=== PATIENT | female | born 1985 | race Caucasian/White ===

== ENCOUNTER 2019-04-13 16:32 | Inpatient (IN) ==
--- NOTE | 2019-04-13 16:55 | Obstetrical Progress Note ---
Date of Service April 13, 2019 Assessment & Plan (1) Double footling breech presentation: Patient presents with SROM for copious clear fluid, double footling breech presentation confirmed by palpation and by ultrasound, with 2cm/50% cervix. On exam, the cord was palpable between the feet at the top of the internal cervical os. This too was confirmed by ultrasound, where a 3VC is visible in cross section just above the cervix between the feet. STAT section was called. Patient and FOB agree with plan. Dr. Huntley is on L&D for care of his own patients and has graciously volunteered to assist with the delivery. Dr. Harris was made aware by myself, and is en route (he had been notified of patient impending arrival right after I spoke with her by phone, and was already on his way). Dr. Purdy has also been notified by nursery team and is reportedly en route. Present on Admission?: Yes Subjective Patient arrives to L&D grossly ruptured for clear amniotic fluid. She has ongoing leakage, no VB, no contractions and good FM. She notes that in the entire trip from home to here she had two cramps that were not painful. She denies feeling anything other than liquid coming through the vagina. Physical Exam Constitutional: WD/WN, vitals as above Eyes: PERRL, conjunctivae normal, anicteric sclerae ENMT: external ear and nose normal, oropharynx normal Neck: supple Respiratory: normal respiratory effort and able to speak in complete sentences; no respiratory distress Cardiovascular: Rate/Rhythm: regular rate and regular rhythm Gastrointestinal (Abdomen): Gravid / AGA, nontender Musculoskeletal: no cyanosis or clubbing, extremities motor strength 5/5 Skin: no rashes, warm and dry Neurologic: patellar DTR's 2+ bilat, sensation intact Psychiatric: A+Ox3, euthymic affect Genitourinary: Speculum/Bimanual Exam: no vaginal lesions, no vaginal bleeding and uterus nontender OB Exam Abdomen: + breech (double footling confirmed by US. Cord is the first presenting structure.); no regular contractions Manual OB Exam: + cervical dilation 2 cm, + cervical effacement 50%, + station (double footling.) and + amniotic fluid clear and nitrazine positive OB Exam Monitor Tracing: + external FHT monitor used, + external uterine monitor used and + category I PG Care Time/CCT Total # of Minutes Spent Total Time Spent with Patient: Total time spent is greater than 50% in coordination of care (as documented) at patient's floor/unit and/or counseling patient:
[2019-04-13] MEDS ORDERED: LACTATED RINGER'S 1,000 ML IV SCH ×3 (17:00→21:42)
--- NOTE | 2019-04-13 17:12 | Anesthesiology Consultation ---
Date of Service April 13, 2019 Assessment & Plan (1) Encounter for pre-operative examination: Chart Review Chart Review: Acceptable Risk for Surgery and Patient NOT seen in Pre Admission Testing Consults Requested none ASA ASA2 Proposed Anesthesia Anesthesia Type: Spinal (intrathecal narcotics) Risk / Benefits Reviewed With: PT / POA / Parent / Guardian, Accepts Plan and Informed Consent Obtained History Surgery Operation Date: 04/13/19 16:40 Proposed Procedures p Section in LD(Bilateral) - Belen Samaniego MD Height/Weight Height: 5 ft 8 in Weight: 85.729 kg Allergies Allergy/AdvReac Type Severity Reaction Status Date / Time No Known Drug Allergies Allergy Verified 04/10/19 13:51 Medications Home Medications Medication Instructions Recorded Confirmed Last Taken PNV cmb#95-ferrous fumarate-FA 1 tab PO DAILY 11/21/18 04/11/19 03/27/19 [] ferrous sulfate 325 mg PO 3XWK 03/13/19 04/11/19 03/26/19 amoxicillin 500 mg PO TID 04/09/19 04/11/19 04/10/19 calcium carbonate [Tums] 200 mg PO UD PRN 04/10/19 04/11/19 Unknown guaifenesin PO 04/11/19 04/11/19 Unknown NPO Date Last Intake of Fluids: 04/13/19 Time Last Intake of Fluids: 14:00 Date Last Intake of Solids: 04/13/19 Time Last Intake of Solids: 14:00 Past Medical History Medical History Acid reflux WITH , TUMS PRN Breech presentation Eosinophilic granuloma BORN WITH, 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 ISSUES History of antepartum hemorrhage DURING DELIVERY WITH PRIOR History of anxiety History of high blood pressure AROUND THE TIME OF MIGRAINES/NO CURRENT ISSUES WITH History of migraine History of placenta previa THIS AND RESOLVED Leg swelling FEW MONTHS AGO, L LEG SWELLING - ED VISIT FOR - U/S FOR BLOOD CLOT - NEGATIVE RESOLVED Sinus infection Exercise / Class Metabolic Activity II 4-5 Yardwork/Stairs/Walk up hill Past Family History Family History Brother Depression Father Depression Mother Breast cancer FH: malignant neoplasm of thyroid Sister Breast cancer Grandmother (Paternal) Multiple gestation Family/Other Multiple gestation cousin Past Surgical History Surgical History History of laparoscopy S/P wisdom tooth extraction Past Anesthesia History No Hx of Anesthesia Complications and No Family Hx of Anesthesia Complications History of PONV No Hx of PONV and No Hx of Motion Sickness Social History Smoking Status: Never smoker Do You Dip or Chew Tobacco: No Hx Alcohol Use: No Hx Substance Use: No substance use type: does not use Physical Exam Vital Signs Last Vital Signs Temp 37.1 C 04/13/19 16:50 Pulse 81 04/13/19 16:51 Resp 18 04/13/19 16:50 BP 135/69 04/13/19 16:51 ENMT Mouth: no dentition abnormality Thyromental Distance: > or= 3.5 Finger Breadths Mallampati Class: II Neck normal visual inspection Respiratory normal respiratory effort Auscultation: lungs clear to auscultation bilaterally Cardiovascular Rate/Rhythm: regular rate and regular rhythm Psychiatric Orientation: alert
[2019-04-13] MEDS ORDERED: CEFAZOLIN 2000MG 2,000 MG/15 ML SYR IV SCH (17:15)
[2019-04-13 17:16] LABS: Basophils # (auto) 0.02 K/uL (0-0.2); Basophils % (auto) 0.2 %; Eosinophils # (auto) 0.04 K/uL (0-0.5); Eosinophils % (auto) 0.4 %; Hematocrit (blood only) 34.1 % (37-47); Hemoglobin 11.8 g/dL (12.0-16.0); Immature Granulocytes # (auto) 0.05 K/uL (0.00-0.02); Immature Granulocytes % (auto) 0.5 %; Lymphocytes # (auto) 1.41 K/uL (1.2-3.4); Lymphocytes % (auto) 13.9 %; Mean Corpuscular Hemoglobin 33.1 pg (25-34); Mean Corpuscular Hgb Conc 34.6 g/dL (32-36); Mean Corpuscular Volume 95.8 fL (80-100); Mean Platelet Volume 10.1 fL (7.4-10.4); Monocytes # (auto) 0.71 K/uL (0.11-0.59); Neutrophils # (auto) 7.92 K/uL (1.4-6.5); Platelet Count 245 K/uL (130-400); RDW Coefficient of Variation 14.4 % (11.5-14.5); RDW Standard Deviation 50.1 fL (36.4-46.3); Red Blood Count 3.56 M/uL (4.2-5.4); White Blood Count 10.15 K/uL (4.8-10.8)
[2019-04-13] MEDS ORDERED: CITRIC ACID/SODIUM CITRATE 15 ML UDC PO SCH (18:00)
--- NOTE | 2019-04-13 18:24 | Operative Report ---
Post Operative Report Pre & Post Diagnosis Operation Date: 04/13/19 16:40 Pre-Op Diagnosis: Rupture of membranes; Double footling breech; 39 weeks gestation Post-Op Diagnosis: Rupture of membranes; Double footling breech; 39 weeks gestation Procedure Operation Date: 04/13/19 16:40 Actual Procedures p Section in LD(Bilateral) - Belen Samaniego MD Surgeon Belen Samaniego MD Chimney Supervisor Brick Dr. Huntley Estimated Blood Loss 500 Findings Consistent with Post-Op Diagnosis After delivery of infant and removal of placenta, a fibrous band of tissue was found to be firmly attached to the inside of the uterine fundus and stretching down the uterine cavity. This was resected and sent for pathology; it may represent synechia or septum. Specimens Placenta Cord blood Cord gas Fibrous uterine septum Anesthesia Type Spinal Complications none Disposition Accompanied Patient To Recovery: Yes Disposition: L&D Description of Procedure The patient was brought to the operating room and placed on the table in the supine position with a leftward tilt, then prepped and draped in standard sterile fashion. A hard time out was taken prior to proceeding. A pfannensteil incision was created sharply and carried down to the fascia using bovie electrocautery. The fascia was nicked and then extended using davison scissors. The edges of the fascia were grasped with Harleen clamps and elevated, then sharply and bluntly dissected off the underlying rectus. The midline of the rectus was identified and bluntly . The peritoneum was bluntly entered, and this entry was extended using pressure from the surgeon's hands. The bladder retractor was placed and the lower uterine segment was examined and found to be well developed, with the uterus somewhat dextrorotated. A bladder flap was created and the retractor was replaced behind this flap to protect the bladder. A transverse lower uterine incision was then created, with final entry to the uterine cavity made in a blunt manner with the surgeon's finger. Clear amniotic fluid was encountered. The feet were elevated to the incision together, and delivered using mild fundal pressure. The cord was noted to be between the feet and tangled around the ankles. The remainder of the was delivered by extracting to the hips, rotating to sacrum-anterior, delivering the torso to the shoulders, sweeping each arm in physiologic fashion, then delivering the head while maintaining flexion. The cord was doubly clamped and cut, then the infant was taken to the warmer for social and political studies professor care. Cord gas segment was isolated and handed off for collection. The placenta was manually extracted, then the uterus was gently exteriorized from the maternal abdomen. The cavity was cleared of clot and debris using a dry lap sponge. A firm, r oughly 1-cm diameter band of white fibrous avascular tissue was found firmly affixed to the uterine fundus and protruding downward into the cavity, forming a loop that could be grasped by the surgeon. Gentle traction did not show any tendency of this tissue to separate from the fundus. It did not have an appearance consistent with typical placenta. A band of fibrous scar / synechia / septum were all considered possible. This was resected with [place] scissors and sent in formalin for pathology. The remainder of the cavity was clear of any debris, the uterus was very firm, and bleeding was minimal. The angles of the incision were identified with allis clamps, and the hysterotomy was then repaired in running locked fashion using 0-vicryl suture, followed by a second imbricating layer. A small area of bleeding was addressed with a pwpchl-ar-ksdon stitch. The tubes and ovaries were examined and found to be normal bilaterally. The posterior gutter was irrigated and cleared of clot and debris. The uterus was then gently re-internalized to the abdomen. Lateral gutters were cleared of clot and debris using a damp lap sponge, and a final exam of the hysterotomy off pressure revealed good hemostasis. The rectus muscles were allowed to reapproximate naturally. The angle of the fascia was grasped with a Harleen clamp and the fascia was then repaired in running non- locked fashion with 1-vicryl suture. At the completion of repair, the fascia was examined and found to be free of any defect. The subcutaneous tissue was copiously irrigated and then reapproximated using 3-0 chromic. The skin was then closed using 4-0 monocryl in a running subcuticular fashion and a dermabond dressing was applied. The brandon was noted to be draining clear yellow urine, 250cc in volume for the case, as the patient was transferred back to her recovery room. I attest to the content of the Intraoperative Record and any orders documented therein. Any exceptions are noted below.
[2019-04-13] MEDS ORDERED: DiphenhydrAMINE HCL 50 MG/ML VIAL IV PRN ×2 (18:28)
[2019-04-13] MEDS ORDERED: METOCLOPRAMIDE HCL 5 MG in SODIUM CHLORIDE 0.9% 50 ML IV PRN (18:28)
[2019-04-13] MEDS ORDERED: MoRPHine SULFATE PF 1 MG/ML 10 ML AMP/VIAL INT SPINAL ONE (18:28)
[2019-04-13] MEDS ORDERED: MoRPHine SULFATE 2 MG/ML CARP IV PRN (18:28)
[2019-04-13] MEDS ORDERED: NALOXONE HCL 0.08 MG in SYRINGE 1.8 ML IV PRN (18:28)
[2019-04-13] MEDS ORDERED: ONDANSETRON INJ 2 MG/ML 2 ML VIAL IV PRN (18:28)
[2019-04-13] MEDS ORDERED: ePHEDrine sulfate 50 MG/ML AMP IV PRN (18:28)
[2019-04-13] MEDS ORDERED: MEPERIDINE HCL 25 MG/ML CARP IV PRN (18:28)
[2019-04-13] MEDS ORDERED: LACTATED RINGER'S 500 ML IV PRN (18:28)
[2019-04-13] MEDS ORDERED: PROMETHAZINE HCL 6.25 MG in SODIUM CHLORIDE 0.9% 50 ML IV PRN (18:28)
[2019-04-13] MEDS ORDERED: NALOXONE HCL 0.4 MG/1 ML VIAL/CARP IV PRN (18:28)
[2019-04-13] MEDS ORDERED: NALBUPHINE HCL INJ 10 MG/ML AMP IV PRN (18:28)
[2019-04-13] MEDS ORDERED: HYDROmorphone INJ 0.5 MG/0.5 ML SYR IV PRN (18:28)
[2019-04-13] MEDS ORDERED: NALOXONE HCL 1 MG in SODIUM CHLORIDE 0.9% 1000ML 1,000 ML IV PRN (18:28)
[2019-04-13] MEDS ORDERED: NO NARCOTICS OR SEDATIVES SCH (18:30)
[2019-04-13] MEDS ORDERED: DC INTRASPINAL MORPHINE SCH (18:30)
[2019-04-13] MEDS ORDERED: SODIUM CHLORIDE 0.9% 1000ML 1,000 ML IV SCH (18:30)
--- NOTE | 2019-04-13 18:33 | Anesthesiology Progress Note ---
Date of Service April 13, 2019 Anesthesia Post Procedure Vital Signs Vital Signs: Temp Pulse Resp BP Pulse Ox 04/13/19 18:32 61 98 04/13/19 18:27 69 98 04/13/19 18:22 82 113/62 98 04/13/19 16:51 81 135/69 04/13/19 16:50 37.1 C 81 18 135/69 Transfer of Care Handoff Completed per policy Notes Mental Status: alert / awake / arousable Nausea / Vomiting: adequately controlled Pain: adequately controlled Airway Patency, RR, SpO2: stable & adequate BP & HR: stable & adequate Hydration State: stable & adequate Neuraxial Anesthesia: was administered and sensory block is resolving Anesthetic Complications: no major complications apparent
[2019-04-13 19:07] LABS: Base Excess Cord Venous Blood -2.3 mEq/L (-7.7-1.9); Cord Venous Blood HCO3 23 mmol/L (18.4-26.8); Cord Venous Blood PCO2 43 mmHg (30.4-57.2); Cord Venous Blood PO2 26 mmHg (14.1-43.3); Cord Venous Blood pH 7.35 (7.20-7.44); O2 Saturation Cord Venous Bld < 60.0 % (<68)
[2019-04-13] MEDS ORDERED: HYDROCORTISONE ACETATE 25 MG SUPP PR PRN (21:42)
[2019-04-13] MEDS ORDERED: SENNA 8.6 MG TAB PO PRN (21:42)
[2019-04-13] MEDS ORDERED: SUPERCREAM 0.870% 15 GM JAR EXT PRN (21:42)
[2019-04-13] MEDS ORDERED: BENZOCAINE 20% AER SPR 82.5 GM CAN EXT PRN (21:42)
[2019-04-13] MEDS ORDERED: DIPHTHERIA/TETANUS/PERTUSSIS 0.5 ML SYR/VIAL IM ONE (21:42)
[2019-04-13] MEDS ORDERED: MAGNESIUM HYDROXIDE SUSP 30 ML UDC PO PRN (21:42)
[2019-04-13] MEDS ORDERED: OXYTOCIN 30 UNITS in LACTATED RINGER'S 1,000 ML IV SCH (22:00)
[2019-04-13] MEDS: DOCUSATE SODIUM 100 MG CAP PO SCH (22:25)
[2019-04-13] MEDS: KETOROLAC 30 MG/ML VIAL IV PRN (22:26)
[2019-04-13] MEDS: SIMETHICONE 80 MG CHEW PO SCH (22:26)
--- NOTE | 2019-04-14 04:35 | Obstetrical Progress Note ---
Date of Service <Cheng Bernabe MD - Last Filed: 04/14/19 06:23> April 14, 2019 Assessment & Plan <Cheng Bernabe MD - Last Filed: 04/14/19 06:23> (1) : CS 04/13 POD#1 feels well, ambulating well, voiding well will continue routine care After discharge will have 6 week follow-up (2) Double footling breech presentation: Subjective <Cheng Bernabe MD - Last Filed: 04/14/19 06:23> Ms Hinojosa is a 33 y/o female ; POD #1 following delivery at 39+weeks; doing well this morning; some consistent abdominal cramping/pain; voiding minimally, not passing gas nor bowel movements at this point, can feel belly grumbling and moving; was only able to have crackers overnight but did not have any nausea or vomiting associate with them; restricted to bed overnight Physical Exam <Cheng Bernabe MD - Last Filed: 04/14/19 06:23> General: alert; oriented; no acute distress Cardiac: RRR; no m/g/r Respiratory: CTAB a/p; no wheezes/rales/rhonchi; no increased work of breathing; symmetrical chest rise; no respiratory distress Abdomen: soft; NT/ND; bowel sounds positive Uterus: uterine fundus firm; palpable 3cm below umbilicus, incision tender, non- erythematous, without inflammation Lower extrem: no lower extremity edema or swelling; no deep calf pain; Susanna's sign negative b/l Results & Data <Cheng Bernabe MD - Last Filed: 04/14/19 06:23> Vital Signs (Past 12 Hours) Vital Signs Temp Pulse Pulse Resp BP BP Pulse Ox 04/14/19 03:10 17 98 04/14/19 02:10 17 96 04/14/19 01:10 16 98 04/14/19 00:20 36.6 C 72 17 117/74 95 04/14/19 00:10 15 97 04/13/19 23:10 17 97 04/13/19 22:10 17 99 04/13/19 21:10 36.4 C L 58 L 16 120/72 100 04/13/19 20:37 66 98 04/13/19 20:32 65 99 04/13/19 20:27 60 100 04/13/19 20:23 54 L 18 120/63 98 04/13/19 20:22 59 L 99 04/13/19 20:17 69 99 04/13/19 20:13 62 121/69 04/13/19 20:12 66 99 04/13/19 20:07 62 98 04/13/19 20:03 69 122/75 04/13/19 20:02 71 98 04/13/19 19:57 69 99 04/13/19 19:55 61 123/66 04/13/19 19:54 61 18 171/72 H 98 04/13/19 19:52 61 97 04/13/19 19:47 62 96 04/13/19 19:43 57 L 122/65 04/13/19 19:42 61 96 04/13/19 19:37 58 L 96 04/13/19 19:33 69 109/69 04/13/19 19:32 54 L 95 04/13/19 19:27 63 96 04/13/19 19:23 51 L 18 116/74 96 04/13/19 19:22 60 96 04/13/19 19:17 66 96 04/13/19 19:13 62 18 125/74 96 04/13/19 19:12 62 96 04/13/19 19:07 65 97 04/13/19 19:03 73 18 131/67 97 04/13/19 19:02 71 97 04/13/19 18:57 79 98 04/13/19 18:53 71 18 126/62 98 04/13/19 18:52 74 98 04/13/19 18:47 71 97 04/13/19 18:43 71 18 126/62 98 04/13/19 18:42 73 97 04/13/19 18:41 69 110/56 L 04/13/19 18:38 69 94 04/13/19 18:37 67 96 04/13/19 18:36 71 18 126/62 98 04/13/19 18:32 61 98 04/13/19 18:27 69 98 04/13/19 18:22 36.5 C 83 18 113/62 98 04/13/19 16:51 81 135/69 04/13/19 16:50 37.1 C 81 18 135/69 Laboratory Results 04/13/19 04/13/19 04/13/19 Range/Units 17:47 17:47 16:59 WBC 10.15 (4.8-10.8) K/uL RBC 3.56 L (4.2-5.4) M/uL Hgb 11.8 L (12.0-16.0) g/dL Hct 34.1 L (37-47) % MCV 95.8 (80-100) fL MCH 33.1 (25-34) pg MCHC 34.6 (32-36) g/dL RDW Std Deviation 50.1 H (36.4-46.3) fL RDW Coeff of Liv 14.4 (11.5-14.5) % Plt Count 245 (130-400) K/uL MPV 10.1 (7.4-10.4) fL Immature Gran % (Auto) 0.5 % Neut % (Auto) 78.0 % Lymph % (Auto) 13.9 % [place] % (Auto) 7.0 % Eos % (Auto) 0.4 % Baso % (Auto) 0.2 % Immature Gran # (Auto) 0.05 H (0.00-0.02) K/uL Neut # (Auto) 7.92 H (1.4-6.5) K/uL Lymph # (Auto) 1.41 (1.2-3.4) K/uL [place] # (Auto) 0.71 H (0.11-0.59) K/uL Eos # (Auto) 0.04 (0-0.5) K/uL Baso # (Auto) 0.02 (0-0.2) K/uL Cord ABG pH Cancelled Cord ABG pCO2 Cancelled Cord ABG pO2 Cancelled Cord ABG HCO3 Cancelled Cord ABG Base Excess Cancelled Cord ABG O2 Sat Cancelled Cord VBG pH 7.35 (7.20-7.44) Cord VBG pCO2 43 (30.4-57.2) mmHg Cord VBG pO2 26 (14.1-43.3) mmHg Cord VBG HCO3 23 (18.4-26.8) mmol/L Cord VBG Base Excess -2.3 (-7.7-1.9) mEq/L Cord VBG O2 Sat < 60.0 (<68) % Barometric Pressure 735.0 Cancelled Blood Gas Comments MORENO Cancelled Medications Administered Current Inpatient Medications Benzocaine (Dermoplast Pain Relieving Roseto) 1 appln EXT UD PRN PRN Reason: use on skin as needed Stop: 05/13/19 21:41 Bisacodyl (Dulcolax) 5 mg PO 1999 [facility] Stop: 04/14/19 20:01 Bisacodyl (Dulcolax) 10 mg [place] PRN PRN PRN Reason: Constipation Stop: 05/15/19 18:27 Cocaine HCl (Supercream 0.870%) 1 gm EXT UD PRN PRN Reason: hemmorrhoidal inflammation Stop: 04/27/19 21:41 Diphenhydramine HCl (Benadryl Capsule) 50 mg PO HS PRN PRN Reason: Insomnia Stop: 04/14/19 12:30 Diphenhydramine HCl (Benadryl) 25 mg IV HS PRN PRN Reason: Insomnia Stop: 04/14/19 12:30 Diphenhydramine HCl (Benadryl) 25 mg IV Q6H PRN PRN Reason: pruritis Stop: 04/14/19 12:28 Diphenhydramine HCl (Benadryl Capsule) 25 mg PO QID PRN PRN Reason: Itching Stop: 05/13/19 21:41 Diphenhydramine HCl (Benadryl) 25 mg IV QID PRN PRN Reason: Itching Stop: 05/14/19 12:29 Docusate Sodium (Colace) 100 mg PO DAILY@08,21 [facility] Stop: 05/13/19 21:41 Last Admin: 04/13/19 22:25 Dose: 100 mg Documented by: Ephedrine Sulfate (Ephedrine Sulfate) 10 mg IV Q5M PRN PRN Reason: Hypotension Stop: 04/14/19 12:28 Ferrous Sulfate (Feosol) 325 mg PO DAILY@ [facility] Stop: 05/14/19 07:59 Hydrocortisone (Anusol Hc) 25 mg [place] BID PRN PRN Reason: Hemorrhoids Stop: 05/13/19 21:41 Hydromorphone HCl (Dilaudid) 0.5 mg IV Q4H PRN PRN Reason: Breakthrough Surgical Pain Stop: 04/14/19 12:29 Lactated Ringer's (Lr) 1,000 mls @ 125 mls/hr IV .Q8H CLARICE Stop: 05/13/19 17:46 Last Admin: 04/14/19 06:06 Dose: 125 mls/hr Documented by: Lactated Ringer's (Lr) 500 mls @ 999 mls/hr IV .Q31M PRN PRN Reason: Hypotension Stop: 04/14/19 12:28 Naloxone HCl 0.08 mg/ Syringe 2 mls @ 1 mls/min IV Q30M PRN; Protocol PRN Reason: Urinary Retention Stop: 04/14/19 12:28 Naloxone HCl 1 mg/ Sodium (Chloride) 1,002.5 mls @ 50 mls/hr IV .Q20H3M PRN PRN Reason: itching or nausea Stop: 04/14/19 12:28 Promethazine HCl 6.25 mg/ (Sodium Chloride) 50.25 mls @ 204 mls/hr IV Q6H PRN PRN Reason: Nausea And Vomiting Stop: 04/14/19 12:29 Sodium Chloride (Nss 1000ml) 1,000 mls @ 15 mls/hr IV .Q24H CLARICE Stop: 04/14/19 12:28 Metoclopramide HCl 5 mg/ (Sodium Chloride) 51 mls @ 150 mls/hr IV Q6H PRN PRN Reason: Nausea And Vomiting Stop: 04/14/19 12:30 Lactated Ringer's (Lr) 1,000 mls @ 125 mls/hr IV .Q8H CLARICE Stop: 05/13/19 21:41 Promethazine HCl 25 mg/ Sodium (Chloride) 51 mls @ 204 mls/hr IV Q4H PRN PRN Reason: Nausea And Vomiting Stop: 05/14/19 12:29 Ibuprofen (Motrin) 600 mg PO Q4H PRN PRN Reason: Pain Stop: 05/13/19 21:41 Ketorolac Tromethamine (Toradol) 30 mg IV Q6H PRN PRN Reason: Breakthrough Surgical Pain Stop: 04/14/19 12:29 Last Admin: 04/13/19 22:26 Dose: 30 mg Documented by: Ketorolac Tromethamine (Toradol) 30 mg IV Q6H PRN PRN Reason: Pain Stop: 04/19/19 12:29 Magnesium Hydroxide (Milk Of Magnesia) 30 ml PO HS PRN PRN Reason: Constipation Stop: 05/13/19 21:41 Meperidine HCl (Demerol) 25 mg IV Q15M PRN PRN Reason: Breakthrough Surgical Pain Stop: 04/14/19 12:29 Meperidine HCl (Demerol) 50 - 75 mg IV Q4H PRN PRN Reason: Pain Stop: 04/28/19 12:29 Miscellaneous (No Narcotics Or Sedatives) 1 ea N/A UD CLARICE Stop: 04/14/19 12:28 Miscellaneous Information (Dc Intraspinal Morphine) 1 ea N/A UD CL[facility]ICE Stop: 04/14/19 12:28 Morphine Sulfate (Morphine Sulfate) 4 mg IV Q2H PRN PRN Reason: Breakthrough Surgical Pain Stop: 04/14/19 12:29 Nalbuphine HCl (Nubain) 5 mg IV Q10M PRN PRN Reason: itching or nausea Stop: 04/14/19 12:28 Naloxone HCl (Narcan) 0.1 mg IV UD PRN PRN Reason: Respiratory Depression Stop: 04/14/19 12:28 Ondansetron HCl (Zofran) 4 mg IV Q6H PRN PRN Reason: Nausea And Vomiting Stop: 04/14/19 12:29 Ondansetron HCl (Zofran) 4 mg IV Q4H PRN PRN Reason: Nausea And Vomiting Stop: 05/14/19 12:29 Oxycodone/Acetaminophen (Percocet 5mg/325mg) 1 - 2 tab PO Q4H PRN PRN Reason: Pain Stop: 04/28/19 12:29 Prenat Multivit/Tangier/Iron/Folic Ac ( Vitamin) 1 tab PO DAILY@08 [facility] Stop: 05/14/19 07:59 Sennosides (Senokot) 17.2 mg PO HS PRN PRN Reason: Constipation Stop: 05/13/19 21:41 Simethicone (Mylicon) 80 mg PO DAILY@08,13,17,21 [facility] Stop: 05/13/19 21:41 Last Admin: 04/13/19 22:26 Dose: 80 mg Documented by: <Belen Samaniego MD - Last Filed: 04/14/19 06:46> Co-Signing Physician Notes I have reviewed the resident's note and examined the patient myself, and agree with the note above. Resident Activity Tracking <Cheng Bernabe MD - Last Filed: 04/14/19 06:23> Resident Involvement: Resident Care Provided Care Provided: OB Delivery
[2019-04-14 06:43] LABS: Basophils # (auto) 0.03 K/uL (0-0.2); Basophils % (auto) 0.3 %; Eosinophils # (auto) 0.05 K/uL (0-0.5); Eosinophils % (auto) 0.4 %; Hematocrit (blood only) 34.6 % (37-47); Hemoglobin 11.8 g/dL (12.0-16.0); Immature Granulocytes # (auto) 0.05 K/uL (0.00-0.02); Immature Granulocytes % (auto) 0.4 %; Lymphocytes # (auto) 0.99 K/uL (1.2-3.4); Lymphocytes % (auto) 8.3 %; Mean Corpuscular Hemoglobin 32.5 pg (25-34); Mean Corpuscular Hgb Conc 34.1 g/dL (32-36); Mean Corpuscular Volume 95.3 fL (80-100); Monocytes # (auto) 0.78 K/uL (0.11-0.59); Monocytes % (auto) 6.6 %; Neutrophils # (auto) 9.99 K/uL (1.4-6.5); Platelet Count 219 K/uL (130-400); RDW Coefficient of Variation 14.4 % (11.5-14.5); RDW Standard Deviation 49.3 fL (36.4-46.3); Red Blood Count 3.63 M/uL (4.2-5.4); White Blood Count 11.89 K/uL (4.8-10.8)
[2019-04-14] MEDS: KETOROLAC 30 MG/ML VIAL IV PRN (08:09)
[2019-04-14] MEDS: DOCUSATE SODIUM 100 MG CAP PO SCH ×2 (08:10→21:19)
[2019-04-14] MEDS: FERROUS SULFATE 325 MG TAB PO SCH (08:10)
[2019-04-14] MEDS: PRENATAL VITAMIN 1 TAB PO SCH (08:11)
[2019-04-14] MEDS: SIMETHICONE 80 MG CHEW PO SCH ×4 (08:11→21:18)
[2019-04-14] MEDS ORDERED: PROMETHAZINE HCL 25 MG in SODIUM CHLORIDE 0.9% 50 ML IV PRN (12:30)
[2019-04-14] MEDS ORDERED: MEPERIDINE HCL 50 MG/ML CARP IV PRN (12:30)
[2019-04-14] MEDS ORDERED: ONDANSETRON INJ 2 MG/ML 2 ML VIAL IV PRN (12:30)
[2019-04-14] MEDS ORDERED: KETOROLAC 30 MG/ML VIAL IV PRN (12:30)
[2019-04-14] MEDS ORDERED: DiphenhydrAMINE HCL 50 MG/ML VIAL IV PRN (12:30)
[2019-04-14] MEDS: OXYCODONE/ACETAMINOPHEN 5mg/325mg TAB PO PRN (16:57)
[2019-04-14] MEDS: IBUPROFEN 600 MG TAB PO PRN (16:58)
[2019-04-14] MEDS ORDERED: BISACODYL 5 MG TABEC PO SCH (20:00)
[2019-04-15] MEDS: IBUPROFEN 600 MG TAB PO PRN ×2 (00:34→08:41)
[2019-04-15] MEDS: OXYCODONE/ACETAMINOPHEN 5mg/325mg TAB PO PRN ×2 (00:34→08:41)
[2019-04-15 06:41] LABS: Hematocrit (blood only) 32.7 % (37-47)
--- NOTE | 2019-04-15 06:58 | Obstetrical Progress Note ---
Date of Service <Cheng Bernabe MD - Last Filed: 04/15/19 06:58> April 15, 2019 Assessment & Plan <Cheng Bernabe MD - Last Filed: 04/15/19 06:58> (1) : CS 04/13 POD#2 feels well, ambulating well, voiding well will continue routine care After discharge will have 6 week follow-up (2) Double footling breech presentation: Subjective <Cheng Bernabe MD - Last Filed: 04/15/19 06:58> Ms Hinojosa is a 33 y/o female ; POD #1 following delivery at 39+weeks; doing well this morning; some consistent abdominal cramping/pain; voiding minimally, not passing gas nor bowel movements at this point, can feel belly grumbling and moving; was only able to have crackers overnight but did not have any nausea or vomiting associate with them; restricted to bed overnight Review of Systems Constitutional: denies fever; chills; sweats; headache Respiratory: denies shortness of breath, difficulty breathing Cardiac: denies chest pain; palpitations; chest pressure Breast: denies breast pain : denies dysuria Physical Exam <Cheng Bernabe MD - Last Filed: 04/15/19 06:58> General: alert; oriented; no acute distress Cardiac: RRR; no m/g/r Respiratory: CTAB a/p; no wheezes/rales/rhonchi; no increased work of breathing; symmetrical chest rise; no respiratory distress Abdomen: soft; NT/ND; bowel sounds positive Uterus: uterine fundus firm; palpable 3cm below umbilicus, incision intact without erythema or tenderness Lower extrem: no lower extremity edema or swelling; no deep calf pain; Susanna's sign negative b/l Results & Data <Cheng Bernabe MD - Last Filed: 04/15/19 06:58> Vital Signs (Past 12 Hours) Vital Signs Temp Pulse Resp BP Pulse Ox 04/15/19 00:45 37.1 C 77 16 100/65 04/14/19 19:30 37.3 C 86 18 120/80 97 Laboratory Results 04/15/19 Range/Units 06:29 Hgb 11.0 L (12.0-16.0) g/dL Hct 32.7 L (37-47) % Medications Administered Current Inpatient Medications Benzocaine (Dermoplast Pain Relieving [place]) 1 appln EXT UD PRN PRN Reason: use on skin as needed Stop: 05/13/19 21:41 Bisacodyl (Dulcolax) 10 mg NE PRN PRN PRN Reason: Constipation Stop: 05/15/19 18:27 Cocaine HCl (Supercream 0.870%) 1 gm EXT UD PRN PRN Reason: hemmorrhoidal inflammation Stop: 04/27/19 21:41 Diphenhydramine HCl (Benadryl Capsule) 25 mg PO QID PRN PRN Reason: Itching Stop: 05/13/19 21:41 Diphenhydramine HCl (Benadryl) 25 mg IV QID PRN PRN Reason: Itching Stop: 05/14/19 12:29 Docusate Sodium (Colace) 100 mg PO DAILY@08, [facility] Stop: 05/13/19 21:41 Last Admin: 04/14/19 21:19 Dose: 100 mg Documented by: Ferrous Sulfate (Feosol) 325 mg PO DAILY@08 [facility] Stop: 05/14/19 07:59 Last Admin: 04/14/19 08:10 Dose: 325 mg Documented by: Hydrocortisone (Anusol Hc) 25 mg NE BID PRN PRN Reason: Hemorrhoids Stop: 05/13/19 21:41 Lactated Ringer's (Lr) 1,000 mls @ 125 mls/hr IV .Q8H [facility] Stop: 05/13/19 17:46 Last Infusion: 04/14/19 12:28 Dose: Infused Documented by: Lactated Ringer's (Lr) 1,000 mls @ 125 mls/hr IV .Q8H [facility] Stop: 05/13/19 21:41 Promethazine HCl 25 mg/ Sodium (Chloride) 51 mls @ 204 mls/hr IV Q4H PRN PRN Reason: Nausea And Vomiting Stop: 05/14/19 12:29 Ibuprofen (Motrin) 600 mg PO Q4H PRN PRN Reason: Pain Stop: 05/13/19 21:41 Last Admin: 04/15/19 00:34 Dose: 600 mg Documented by: Ketorolac Tromethamine (Toradol) 30 mg IV Q6H PRN PRN Reason: Pain Stop: 04/19/19 12:29 Magnesium Hydroxide (Milk Of Magnesia) 30 ml PO HS PRN PRN Reason: Constipation Stop: 05/13/19 21:41 Meperidine HCl (Demerol) 50 - 75 mg IV Q4H PRN PRN Reason: Pain Stop: 04/28/19 12:29 Ondansetron HCl (Zofran) 4 mg IV Q4H PRN PRN Reason: Nausea And Vomiting Stop: 05/14/19 12:29 Oxycodone/Acetaminophen (Percocet 5mg/325mg) 1 - 2 tab PO Q4H PRN PRN Reason: Pain Stop: 04/28/19 12:29 Last Admin: 04/15/19 00:34 Dose: 1 tab Documented by: Prenat Multivit/Iosco/Iron/Folic Ac ( Vitamin) 1 tab PO DAILY@08 [facility] Stop: 05/14/19 07:59 Last Admin: 04/14/19 08:11 Dose: 1 tab Documented by: Sennosides (Senokot) 17.2 mg PO HS PRN PRN Reason: Constipation Stop: 05/13/19 21:41 Simethicone (Mylicon) 80 mg PO DAILY@08,13,17,21 [facility] Stop: 05/13/19 21:41 Last Admin: 04/14/19 21:18 Dose: 80 mg Documented by: <Wilson Bowers Jr, MD, FACOG - Last Filed: 04/15/19 07:57> Co-Signing Physician Notes Resident Physician Supervision Note: I was present with Dr. Bernabe during the history and exam. I discussed the case with the resident and agree with the findings and plan as documented in the note. Any exceptions or clarifications are listed here: Encourged ambulation, discussed diet advancement. All questions answered Documented By: Wilson Bowers Jr, MD, FACOG Resident Activity Tracking <Cheng Bernabe MD - Last Filed: 04/15/19 06:58> Resident Involvement: Resident Care Provided Care Provided: OB Delivery
[2019-04-15] MEDS: SIMETHICONE 80 MG CHEW PO SCH ×2 (08:39→14:22)
[2019-04-15] MEDS: FERROUS SULFATE 325 MG TAB PO SCH (08:39)
[2019-04-15] MEDS: DOCUSATE SODIUM 100 MG CAP PO SCH (08:39)
[2019-04-15] MEDS: PRENATAL VITAMIN 1 TAB PO SCH (08:39)
[2019-04-15] MEDS ORDERED: BISACODYL 10 MG SUPP PR PRN (18:28)
--- NOTE | 2019-04-16 13:11 | Discharge Summary ---
Date of Service April 16, 2019 Admission Exam (Per Admitting) Constitutional WD/WN, vitals as above Eyes PERRL, conjunctivae normal, anicteric sclerae ENMT external ear and nose normal, oropharynx normal Respiratory normal respiratory effort and able to speak in complete sentences; no respiratory distress Cardiovascular Rate/Rhythm: regular rate and regular rhythm Musculoskeletal no cyanosis or clubbing, extremities motor strength 5/5 Skin no rashes, warm and dry Neurologic patellar DTR's 2+ bilat, sensation intact Psychiatric A+Ox3, euthymic affect Genitourinary Speculum/Bimanual Exam: no vaginal lesions, no vaginal bleeding and uterus nontender OB Exam Abdomen: + breech (double footling confirmed by US. Cord is the first presenting structure.); no regular contractions Manual OB Exam: + cervical dilation + 2 cm, + cervical effacement + 50%, + station (double footling.) and + amniotic fluid + clear and + nitrazine positive OB Exam Monitor Tracing: + external FHT monitor used, + external uterine monitor used and + category I Discharge Data Consultations 04/13/19 16:47 Consult Anesthesiology Stat Procedures Performed Operation Date: 04/13/19 16:40 Actual Procedures p Section in LD(Bilateral) - Belen Samaniego MD Hospital Course (1) Double footling breech presentation: Patient presented with SROM for copious clear fluid, double footling b reech presentation confirmed by palpation and by ultrasound, with 2cm/50% cervix. On exam, the cord was palpable between the feet at the top of the internal cervical os. This too was confirmed by ultrasound, where a 3VC is visible in cross section just above the cervix between the feet. STAT section was called. Patient and FOB agree with plan. Dr. Huntley is on L&D for care of his own patients and has graciously volunteered to assist with the delivery. Dr. Harris was made aware by myself, and is en route (he had been notified of patient impending arrival right after I spoke with her by phone, and was already on his way). Dr. Purdy has also been notified by nursery team and is reportedly en route. proceeded without complication. Live infant delivery, see pediatricians' notes for information. See operative report for details of procedure. Post op recovery was unremarkable and patient was discharged home by coverage on POD#2 with instructions for f/u in 6 weeks as per usual, and percocet #14 prn pain.
== END 2019-04-15 14:37 | disposition home or self-care (01) | DRG 788 ==
LOC: OPB 16:32 → 4S1 16:34 → 4S2 22:08